=== PATIENT | male | born 1985 | race Caucasian/White ===

== ENCOUNTER 2016-07-31 20:10 | Observation (INO) | payer MEDICAID ==
[2016-07-31] MEDS ORDERED: ASPIRIN 81 MG CHEWABLE TABLET PO ONE (20:16)
--- NOTE | 2016-07-31 20:32 | Emergency Department Record ---
History of Present Illness - General Chief Complaint: Chest Pain Stated Complaint: CHEST PAIN/MARIELY Time Seen by Provider: 07/31/16 20:15 Source: Patient Mode of Arrival: Ambulatory Limitations: No limitations - History of Present Illness Initial Comments: 31 yo male presents to ED with a CC of chest pressure that began at rest this afternoon. Patient describes his pain as "dull". Patient denies previous history of symptoms, and patient denies fevers, chills, or cough symptoms. Patient denies previous heart or lung problems, but does report a history of DM. MD Complaint: Chest pain Onset/Timin -: Hour(s) Onset: During rest Pain Location: Substernal Pain Radiation: None Severity: Mild Severity scale (1-10): 2 Quality: Aching, Dull, Heaviness Consistency: Intermittent Improves With: Nothing Worsens With: Nothing Treatments Prior to Arrival: Aspirin Treatment Prior to Arrival Comment:: pt took 6 81 mg asa at home - Related Data Allergies Allergy/AdvReac Type Severity Reaction Status Date / Time cefaclor [From Ceclor] Allergy ANAPHYLAXIS Verified 07/31/16 20:16 Travel Screening - Travel/Exposure Within Last 30 Days Have you traveled within the last 30 days?: No - Travel/Exposure Within Last Year Have you traveled outside the [place] in the last year?: No - Additonal Travel Details Have you been exposed to anyone with a communicable illness?: No - Travel Symptoms Symptom Screening: None Review of Systems Constitutional: Denies: Chills, Fever, Malaise, Night sweats Eyes: Denies: Eye discharge, Eye pain ENT: Denies: Congestion, Ear pain, Epistaxis Respiratory: Denies: Cough, Dyspnea Cardiovascular: Reports: Chest pain. Denies: Dyspnea on exertion Endocrine: Denies: Fatigue, Heat or cold intolerance Gastrointestinal: Denies: Abdominal pain, Constipation, Nausea, Vomiting Genitourinary: Denies: Incontinence, Retention Musculoskeletal: Denies: Arthralgia, Back pain, Gout, Joint swelling Skin: Denies: Bruising, Change in color Neurological: Denies: Abnormal gait, Confusion, Headache, Tingling Psychiatric: Denies: Anxiety Hematological/Lymphatic: Denies: Anemia, Blood Clots Past Medical History - SOCIAL HISTORY Smoking Status: Never smoker Alcohol Use: Occassional Drug Use: None, Occassional - RESPIRATORY Hx Respiratory Disorders: Yes Hx Asthma: Yes - CARDIOVASCULAR Hx Cardio Disorders: No - NEURO Hx Neuro Disorders: No - GI Hx GI Disorders: No - Hx Genitourinary Disorders: No - ENDOCRINE Hx Endocrine Disorders: Yes Hx Diabetes: Yes - MUSCULOSKELETAL Hx Musculoskeletal Disorders: No - PSYCH Hx Psych Problems: No - HEMATOLOGY/ONCOLOGY Hx Hematology/Oncology Disorders: No Family Medical History Any Significant Family History?: No Physical Exam - General General Appearance: Alert, Oriented x3, Cooperative, Mild distress Limitations: No limitations - Head Head exam: Atraumatic, Normocephalic, Normal inspection Head exam detail: negative: Abrasion, Contusion, Burns's sign, General tenderness, Hematoma, Laceration - Eye Eye exam: Normal appearance. negative: Conjunctival injection, Periorbital swelling, Periorbital tenderness, Scleral icterus - ENT Ear exam: negative: Auricular hematoma, Auricular trauma Nasal Exam: negative: Active bleeding, Discharge, Dried blood, Foreign body, Sinus tenderness Mouth exam: negative: Drooling, Laceration, Muffled voice, Tongue elevation - Neck Neck exam: Normal inspection. negative: Meningismus, Tenderness - Respiratory Respiratory exam: Normal lung sounds bilaterally. negative: Respiratory distress, Rhonchi, Stridor, Wheezes - Cardiovascular Cardiovascular Exam: Regular rate, Normal rhythm, Normal heart sounds - GI/Abdominal GI/Abdominal exam: Soft. negative: Rebound, Rigid, Tenderness - Rectal Rectal exam: Deferred - exam: Deferred - Extremities Extremities exam: Normal inspection. negative: Calf tenderness, Pedal edema, Tenderness - Back Back exam: Denies: CVA tenderness (R), CVA tenderness (L) - Neurological Neurological exam: Alert, Normal gait, Oriented X3 - Psychiatric Psychiatric exam: Normal affect, Normal mood - Skin Skin exam: Normal color. negative: Abrasion Type of lesion: negative: abrasion Course Vital Signs 07/31/16 20:16 Temperature 97.3 F L Pulse Rate 107 H Respiratory 22 Rate Blood Pressure 136/91 Pulse Ox 100 - Reevaluation(s) Reevaluation #1: 07/31/16 20:26 EKG: NSR 111 Normal axis Normal intervals No acute ST-T wave changes Reevaluation #2: 07/31/16 21:09 Labs reviewed and are grossly unremarkable for an acute process. Reevaluation #3: 07/31/16 21:38 CXR reviewed and id negative for an acute process. Patient was updated on all results, reports that he is chest pain free following (1) Nitro tablet. Will admit for cardiac evaluation. Medical Decision Making - Lab Data Result diagrams: 07/31/16 20:30 07/31/16 20:30 Disposition Disposition: Admit Clinical Impression: Chest pain Qualifiers: Chest pain type: unspecified Qualified Code(s): R07.9 - Chest pain, unspecified Disposition: Still a Patient at [facility] Decision to Admit: Admit from ER Decision to Admit Date: 07/31/16 Decision to Admit Time: 21:40 Condition: (2) Stable Forms: Patient Portal Access Time of Disposition: 21:40
[2016-07-31] MEDS ORDERED: NITROGLYCERIN 0.4MG SL TABLET #25 BTL SL ONE (20:33)
[2016-07-31 20:38] LABS: BASO % 0.3 % (0-6); EOS % 0.6 % (0-6); GRAN % 69.8 % (47-80); HEMATOCRIT 44.1 % (42.0-52.0); HEMOGLOBIN 14.9 gm/dl (14.0-18.0); LYMPH % 16.6 % (16-45); MEAN CELL VOLUME 90.6 fl (81-97); MEAN CORPUSCULAR HEMOGLOBIN 30.6 pg (27-33); MEAN CORPUSCULAR HGB CONC 33.8 g/dl (32-36); MEAN PLATELET VOLUME 11.8 fl (7.4-10.4); MONO % 12.7 % (0-9); PLATELET COUNT 188 K/uL (130-400); RED BLOOD COUNT 4.87 M/uL (4.40-5.70); RED CELL DISTRIBUTION WIDTH 12.3 % (11.5-14.5); WHITE BLOOD COUNT W/O DIFF 6.2 K/uL (4.2-12.2)
[2016-07-31 20:48] LABS: ALB/GLOB RATIO 1.4 (1.1-1.8); ALBUMIN 4.9 gm/dL (3.5-5.0); ALKALINE PHOSPHATASE 126 U/L (38-126); ALT/SGPT 36 U/L (21-72); ANION GAP 13.1 (7-16); AST/SGOT 29 U/L (17-59); BILIRUBIN,TOTAL 0.37 mg/dL (0.2-1.3); BLOOD UREA NITROGEN 11 mg/dL (9-20); CARBON DIOXIDE 28.9 mmol/L (22-30); CREATINE PHOSPHOKINASE 44 U/L (55-170); CREATININE 0.9 mg/dL (0.66-1.25); EST GLOMERULAR FILTRATION RATE > 60 ml/min; GLUCOSE,RANDOM 149 mg/dL (70-110); TOTAL PROTEIN 8.3 gm/dL (6.3-8.2)
[2016-07-31 21:24] LABS: CKMB < 0.2 ug/L (0-6); TROPONIN I < 0.012 ng/mL (0.00-0.034)
[2016-07-31] MEDS ORDERED: NITROGLYCERIN 0.4MG SL TABLET #25 BTL SL PRN (22:08)
[2016-07-31] MEDS ORDERED: ALBUTEROL HFA 8 GM INHALER INH PRN (22:08)
[2016-07-31] MEDS ORDERED: Non-Formulary MISC (Metformin Hcl [Metformin Hcl] 1,000 MG) PO SCH (22:08)
[2016-07-31] MEDS ORDERED: 0.9 % SODIUM CHLORIDE 1000ML 1,000 ML IV PRN (22:08)
[2016-07-31] MEDS ORDERED: FLU VAC QS 2016-17 (INPT, 3YR+) 60MCG/0.5ML IM ONE (22:45)
[2016-08-01] MEDS ORDERED: ACETAMINOPHEN 500 MG TABLET PO ONE ×2 (04:31→13:39)
--- NOTE | 2016-08-01 08:24 | History & Physical ---
History of Present Illness - Date of Service Date of Service for History & Physical: 08/01/16 - History of Present Illness Admitting Diagnosis: Chest Pain. Type II DM History of Present Illness: Wally Daly is a 31 y/o male with history of dull chest pain and MARIELY at rest yesterday afternoon. Reports has history of intermittent chest pressure "feels like someone is sitting on it", is unprovoked, occurs about once a week for an unknown period of time. No known cardiac history, no significant family history. + hx asthma with known DM-2 using Metformin at home. No recent illness Travel Screening - Travel/Exposure Within Last 30 Days Have you traveled within the last 30 days?: No - Travel/Exposure Within Last Year Have you traveled outside the [place] in the last year?: No - Additonal Travel Details Have you been exposed to anyone with a communicable illness?: No - Travel Symptoms Symptom Screening: None Review of Systems Reviewed: No additional complaints except as noted below Constitutional: Denies: Chills, Fever, Malaise, Night sweats Eyes: Denies: Eye discharge, Eye pain ENT: Denies: Congestion, Ear pain, Epistaxis Respiratory: Denies: Cough (attributes a "dry cough" to environmental allergies) , Dyspnea Cardiovascular: Reports: Chest pain. Denies: Dyspnea on exertion, Palpitations , Syncope Endocrine: Denies: Fatigue, Heat or cold intolerance Gastrointestinal: Denies: Abdominal pain, Constipation, Nausea, Vomiting Genitourinary: Denies: Discharge, Dysuria, Frequency, Incontinence, Retention, Testicular pain, Testicular mass, Urgency Musculoskeletal: Denies: Arthralgia, Back pain, Gout, Joint swelling Skin: Denies: Bruising, Change in color Neurological: Denies: Abnormal gait, Confusion, Headache, Tingling Psychiatric: Denies: Anxiety Hematological/Lymphatic: Denies: Anemia, Blood Clots Past Medical History - SOCIAL HISTORY Smoking Status: Never smoker Alcohol Use: Occassional Drug Use: None - RESPIRATORY Hx Respiratory Disorders: Yes Hx Asthma: Yes - CARDIOVASCULAR Hx Cardio Disorders: No - NEURO Hx Neuro Disorders: No - GI Hx GI Disorders: No - Hx Genitourinary Disorders: No - ENDOCRINE Hx Endocrine Disorders: Yes Hx Diabetes: Yes - MUSCULOSKELETAL Hx Musculoskeletal Disorders: No - PSYCH Hx Psych Problems: No - HEMATOLOGY/ONCOLOGY Hx Hematology/Oncology Disorders: No Family Medical History Any Significant Family History?: No Family Hx Comment (NOT TO BE USED IN PLACE OF ITEMS BELOW): Denies H&P Meds/Allergies - Allergies Allergies: Allergies Allergy/AdvReac Type Severity Reaction Status Date / Time cefaclor [From [facility]] Allergy ANAPHYLAXIS Verified 07/31/16 20:16 - Active Medications Active Medications: Current Medications Acetaminophen (Tylenol 500mg Tab) 1,000 mg PO NOW ONE Stop: 08/01/16 04:32 Last Admin: 08/01/16 04:39 Dose: 1,000 mg Albuterol Sulfate (Ventolin Hfa) 1 - 2 puff INH .EVERY 4-6 HOURS PRN PRN Reason: DIFFICULTY IN BREATHING Aspirin (Ecotrin (Ec)) 325 mg PO DAILY [facility] Sodium Chloride () 1,000 mls @ 15 mls/hr IV .Q24H PRN PRN Reason: LARGE VOLUME IV Nitroglycerin (Nitrostat 0.4mg) 0.4 mg SL Q5MIN PRN PRN Reason: CHEST PAIN Stop: 08/02/16 22:09 Non-Formulary Medication (Metformin Hcl [Metformin Hcl]) 1,000 mg PO BID [facility] Last Admin: 07/31/16 23:55 Dose: Not Given Physical Exam - Vital Signs Vital Signs: Vital Signs - Last 24 Hrs Temp Pulse Resp BP Pulse Ox 08/01/16 05:45 100.3 F H 08/01/16 04:29 101.0 F H 08/01/16 04:03 101.1 F H 107 H 18 142/69 96 08/01/16 00:08 98.6 F 90 16 145/79 100 07/31/16 22:00 98.8 F 94 H 16 124/70 98 - General General Appearance: Alert (poor historian, defers to mother's report of symptomology frequently), Oriented x3, Cooperative Limitations: No limitations - Head Head exam: Atraumatic, Normocephalic, Normal inspection Head exam detail: negative: Abrasion, Contusion, Burns's sign, General tenderness, Hematoma, Laceration - Eye Eye exam: Normal appearance. negative: Conjunctival injection, Periorbital swelling, Periorbital tenderness, Scleral icterus Pupils: Normal accommodation - ENT ENT exam: Normal exam, Mucous membranes moist, Normal external ear exam, Normal orophraynx, TM's normal bilaterally Ear exam: negative: Auricular hematoma, Auricular trauma Nasal Exam: Normal inspection. negative: Active bleeding, Discharge, Dried blood, Foreign body, Sinus tenderness Mouth exam: negative: Drooling, Laceration, Muffled voice, Tongue elevation Teeth exam: Normal inspection Throat exam: Normal inspection - Neck Neck exam: Normal inspection, Lymphadenopathy (mild anterior and posterior chain ). negative: Meningismus, Tenderness - Respiratory Respiratory exam: Normal lung sounds bilaterally. negative: Respiratory distress, Rhonchi, Stridor, Wheezes - Cardiovascular Cardiovascular Exam: Regular rate, Normal rhythm, Normal heart sounds - GI/Abdominal GI/Abdominal exam: Soft, Normal bowel sounds. negative: Rebound, Rigid, Tenderness - Rectal Rectal exam: Deferred - exam: Deferred - Extremities Extremities exam: Normal inspection (No nail bed splinter hemorrhage). negative : Calf tenderness, Pedal edema, Tenderness - Back Back exam: Reports: Normal inspection. Denies: CVA tenderness (R), CVA tenderness (L) - Neurological Neurological exam: Alert, Normal gait, Oriented X3 - Psychiatric Psychiatric exam: Flat affect, Normal mood - Skin Skin exam: Normal color. negative: Abrasion Type of lesion: negative: abrasion Results - Labs Result Diagrams: 07/31/16 20:30 07/31/16 20:30 Labs Last 24 Hours: Laboratory Results - last 24 hr 08/01/16 08/01/16 03:59 04:25 POC Glucose 129 H Troponin I < 0.012 - Imaging and Cardiology Chest x-ray Status: Report reviewed (No acute process) VTE H&P Assessment - Risk for VTE Risk for VTE: Yes Risk Level: Very Low Risk Assessment Date: 08/01/16 Risk Assessment Time: 09:49 VTE Orders Placed or Will Be Placed: Yes AMI H&P Plan - EKG Initial EKG: No Acute Changes - EKG Repeat Repeat #1 EKG Repeat: Normal EKG (In ER) Plan - Detailed Diagnosis and Plan (1) Chest pain Current Visit: Yes Status: Acute Qualifiers: Chest pain type: unspecified Qualified Code(s): R07.9 - Chest pain, unspecified Base Code: R07.9 - CHEST PAIN, UNSPECIFIED Comment: 08/01/16 Has previous history of intermittent substernal chest pressure, does not radiate. Unknown longevity of complaint No previous cardiac history Troponin 2 of 3 have been normal Telemetry NSR CXR negative for acute process ASA 325 mg PO QD Nitroglycerin SL Q 4hr PRN (has not required as inpatient) (2) FUO (fever of unknown origin) Current Visit: Yes Status: Acute Base Code: R50.9 - FEVER, UNSPECIFIED Comment: 08/01/16 Fever with Tmax 101.0 orally last night with no constitutional or focal complaint Tylenol 1,000mg PRN for fever WBC normal (3) DM type 2 (diabetes mellitus, type 2) Current Visit: Yes Status: Chronic Qualifiers: Diabetes mellitus complication status: without complication Diabetes mellitus jail insulin use: without jail use Qualified Code(s): E11.9 - Type 2 diabetes mellitus without complications Base Code: E11.9 - TYPE 2 DIABETES MELLITUS WITHOUT COMPLICATIONS Comment: 08/01/16 Random glucose 149 this am Continue Metformin 1,000mg BID per home dosing (4) Asthma Current Visit: Yes Status: Chronic Base Code: J45.909 - UNSPECIFIED ASTHMA, UNCOMPLICATED Comment: 08/01/16 No acute symptoms or complaint Continue Albuterol MDI 1-2 puffs Q 4-6 hrs PRN (5) DVT prophylaxis Current Visit: Yes Status: Acute Base Code: [id number] - Comment: 08/01/16 Automated compression stockings while in bed ASA 325mg PO QD Activity as tolerated with ambulation to BR (6) Full code status Current Visit: Yes Status: Acute Base Code: Z78.9 - OTHER SPECIFIED HEALTH STATUS Comment: 08/01/16 Will remain full code during hospital stay
[2016-08-01] MEDS ORDERED: ALBUTEROL HFA 8 GM INHALER INH PRN (08:44)
--- NOTE | 2016-08-01 09:04 | RADIOLOGY REPORT ---
EXAM: CHEST, TWO VIEWS HISTORY: MID CHEST PRESSURE INTERMITTENTLY IN THE PAST COUPLE OF WEEKS. TECHNIQUE: Upright PA and lateral views of the chest were obtained. Comparison: CT of the abdomen and pelvis with contrast dated 05/22/12. FINDINGS: The cardiomediastinal silhouette is normal in size and configuration. The pulmonary vasculature is nondilated. The lungs and pleural spaces are clear. The osseous structures are intact. IMPRESSION: NO RADIOGRAPHIC EVIDENCE OF ACUTE CARDIOPULMONARY DISEASE. JOB NUMBER: [id number] [facility]
[2016-08-01] MEDS ORDERED: METFORMIN 500 MG TABLET PO SCH (10:00)
[2016-08-01] MEDS ORDERED: ASPIRIN 325 MG TAB ENTERIC-COATED PO SCH (10:00)
--- NOTE | 2016-08-01 11:09 | Discharge Summary ---
Providers Discharge Summary Date: 08/01/16 Date of admission: 07/31/16 21:50 Expected Date of Discharge: 08/01/16 Attending physician: JENI KELLY Primary care physician: Elma Stephen Physical Exam - Vital Signs Vital Signs: Vital Signs - Last 24 Hrs Temp Pulse Resp BP Pulse Ox 08/01/16 09:00 100.1 F H 115 H 16 125/78 97 08/01/16 05:45 100.3 F H 08/01/16 04:29 101.0 F H 08/01/16 04:03 101.1 F H 107 H 18 142/69 96 08/01/16 00:08 98.6 F 90 16 145/79 100 07/31/16 22:00 98.8 F 94 H 16 124/70 98 - General General Appearance: Alert (poor historian, defers to mother's report of symptomology frequently), Oriented x3, Cooperative Limitations: No limitations - Head Head exam: Atraumatic, Normocephalic, Normal inspection Head exam detail: negative: Abrasion, Contusion, Burns's sign, General tenderness, Hematoma, Laceration - Eye Eye exam: Normal appearance. negative: Conjunctival injection, Periorbital swelling, Periorbital tenderness, Scleral icterus Pupils: Normal accommodation - ENT ENT exam: Normal exam, Mucous membranes moist, Normal external ear exam, Normal orophraynx, TM's normal bilaterally Ear exam: negative: Auricular hematoma, Auricular trauma Nasal Exam: Normal inspection. negative: Active bleeding, Discharge, Dried blood, Foreign body, Sinus tenderness Mouth exam: negative: Drooling, Laceration, Muffled voice, Tongue elevation Teeth exam: Normal inspection Throat exam: Normal inspection - Neck Neck exam: Normal inspection, Lymphadenopathy (mild anterior and posterior chain ). negative: Meningismus, Tenderness - Respiratory Respiratory exam: Normal lung sounds bilaterally. negative: Respiratory distress, Rhonchi, Stridor, Wheezes - Cardiovascular Cardiovascular Exam: Regular rate, Normal rhythm, Normal heart sounds - GI/Abdominal GI/Abdominal exam: Soft, Normal bowel sounds. negative: Rebound, Rigid, Tenderness - Rectal Rectal exam: Deferred - exam: Deferred - Extremities Extremities exam: Normal inspection (No nail bed splinter hemorrhage). negative : Calf tenderness, Pedal edema, Tenderness - Back Back exam: Reports: Normal inspection. Denies: CVA tenderness (R), CVA tenderness (L) - Neurological Neurological exam: Alert, Normal gait, Oriented X3 - Psychiatric Psychiatric exam: Flat affect, Normal mood - Skin Skin exam: Normal color. negative: Abrasion Type of lesion: negative: abrasion Hospitalization - Hospitalization Admission Diagnosis: Chest Pain. Type II DM - Problem List/Discharge Diagnosis (1) Chest pain Current Visit: Yes Status: Acute Discharge Diagnosis: Chest pain type: unspecified Qualified Code(s): R07.9 - Chest pain, unspecified Base Code: R07.9 - CHEST PAIN, UNSPECIFIED Comment: 08/01/16 Has previous history of intermittent substernal chest pressure, does not radiate. Unknown longevity of complaint No previous cardiac history Troponin 3 of 3 have been normal Telemetry NSR CXR negative for acute process ASA 325 mg PO QD Nitroglycerin SL Q 4hr PRN (has not required as inpatient) (2) FUO (fever of unknown origin) Current Visit: Yes Status: Acute Base Code: R50.9 - FEVER, UNSPECIFIED Comment: 08/01/16 Fever with Tmax 101.0 orally last night with no constitutional or focal complaint Tylenol 1,000mg PRN for fever WBC normal U/A normal F/u up PCP 1 week (3) DM type 2 (diabetes mellitus, type 2) Current Visit: Yes Status: Chronic Discharge Diagnosis: Diabetes mellitus complication status: without complication Diabetes mellitus fdc insulin use: without intermodal dispatcher use Qualified Code(s): E11.9 - Type 2 diabetes mellitus without complications Base Code: E11.9 - TYPE 2 DIABETES MELLITUS WITHOUT COMPLICATIONS Comment: 08/01/16 Random glucose 149 this am Continue Metformin 1,000mg BID per home dosing (4) Asthma Current Visit: Yes Status: Chronic Base Code: J45.909 - UNSPECIFIED ASTHMA, UNCOMPLICATED Comment: 08/01/16 No acute symptoms or complaint Continue Albuterol MDI 1-2 puffs Q 4-6 hrs PRN (5) DVT prophylaxis Current Visit: Yes Status: Acute Base Code: [id number] - Comment: 08/01/16 Automated compression stockings while in bed ASA 325mg PO QD Activity as tolerated with ambulation to BR (6) Full code status Current Visit: Yes Status: Acute Base Code: Z78.9 - OTHER SPECIFIED HEALTH STATUS Comment: 08/01/16 Will remain full code during hospital stay - Hospitalization Course Disposition: Home, Self-Care Abnormal Labs: Abnormal Lab Results 08/01/16 Range/Units 04:25 POC Glucose 129 H (70-110) mg/dL Condition at Discharge: (1) Good Discharge Plan - Discharge Instructions Activity at Discharge: Increase Activity as Tolerated Diet at Discharge: Advance to Usual Diet
[2016-08-01 11:44] LABS: URINE APPEARANCE CLEAR; URINE BILIRUBIN NEGATIVE (NEGATIVE); URINE BLOOD NEGATIVE (NEGATIVE); URINE COLOR YELLOW; URINE GLUCOSE (UA) NEGATIVE (NEGATIVE); URINE KETONE NEGATIVE (NEGATIVE); URINE LEUKOCYTE ESTERASE NEGATIVE (NEGATIVE); URINE NITRITE NEGATIVE (NEGATIVE); URINE PROTEIN NEGATIVE (NEGATIVE); URINE UROBILINOGEN 0.2 E.U./dL (0.20 - 1.00)
== END 2016-08-01 13:45 | disposition home or self-care (01) ==
LOC: ER 20:10 → MEDSURG 21:50
PROVIDERS: ADMIT Family Medicine; ATTEND Family Medicine
DX: R07.9 Chest pain, unspecified (principal); R50.9 Fever, unspecified; E11.9 Type 2 diabetes mellitus without complications; Z79.84 Long term (current) use of oral hypoglycemic drugs; J45.909 Unspecified asthma, uncomplicated; Z78.9 Other specified health status
CPT/HCPCS: 99285 ×2; 82550; 85025; 82553; 84484 ×2; 80053; 36416; 82948; 81003; 85379; 71020; 93005 ×2; 93010; G0378 ×2; 99220